=== PATIENT | male | born 1955 | race Caucasian/White ===

== ENCOUNTER 2017-05-11 22:12 | Inpatient (IN) | payer SELFPAY ==
[2017-05-11 22:45] LABS: #Eosinphils 0.1 thou/uL (0.0-0.7); #Lymphocytes 1.8 thou/uL (1.20-3.40); #Monocytes 0.6 thou/uL (0.11-0.59); %Basophils 0.3 % (0.0-1.0); %Eosinophils 2.9 % (0.0-10.0); %Lymphocytes 39.4 % (21.0-51.0); %Monocytes 13.6 % (0.0-10.0); Hematocrit 30.8 % (42.0-52.0); Mean Platelet Volume 6.6 fL (7.4-10.4); Red Blood Cell (RBC) Count 3.44 mill/uL (4.70-6.10); White Blood Cell (WBC) Count 4.5 thou/uL (4.8-10.8)
[2017-05-11 22:51] LABS: Prothrombin Time 12.8 SEC (12.0-14.7)
--- NOTE | 2017-05-11 22:57 | RAD ---
CHEST ONE VIEW 05/11/17 HISTORY: Chest pain. COMPARISON: 11/29/16. FINDINGS: The cardiac silhouette is magnified by projection. Pulmonary vasculature is unremarkable. Mediastinum is midline. There is no confluent air space consolidation, or evidence of pneumothorax. Cardiac jose tor leads overlie the chest. IMPRESSION: No active cardiopulmonary abnormalities are demonstrated. POS: [facility]
[2017-05-11 23:05] LABS: ALT (SGPT) 8 U/L (8-55); AST (SGOT) 21 U/L (5-34); Alkaline Phosphatase 101 U/L (40-150); Anion Gap 9 mmol/L (10-20); BUN (Urea Nitrogen) 10 mg/dL (8.4-25.7); Bilirubin, Total 0.2 mg/dL (0.2-1.2); Calc. Creatinine Clearance 0 mL/min (70-130); Calcium 8.5 mg/dL (7.8-10.44); Carbon Dioxide 22 mmol/L (23-31); Chloride 93 mmol/L (98-107); Estimated GFR-MDRD Greater than 90; Globulin 2.6 g/dL (2.4-3.5); Protein, Total 6.3 g/dL (5.8-8.1)
[2017-05-11 23:15] LABS: Troponin I Less than 0.010 ng/mL (< 0.028)
[2017-05-11] MEDS ORDERED: methylPREDNISolone Sod Succ/PF 125 MG/2 ML VIAL ONE (23:49)
[2017-05-11] MEDS ORDERED: Water For Inject, Bacteriostat 30 ML ONE (23:50)
[2017-05-12] MEDS ORDERED: Ondansetron HCl/PF 4 MG/2 ML Vial IVP PRN (01:34)
[2017-05-12] MEDS ORDERED: Ondansetron ODT 4 MG TAB SL PRN (01:34)
[2017-05-12] MEDS ORDERED: Sodium Chloride 0.9% 1,000 ML IV SCH (01:34)
[2017-05-12] MEDS ORDERED: Acetaminophen 325 MG TAB PO PRN ×2 (01:34→02:26)
[2017-05-12 01:45] VITALS: BMI 28.5
[2017-05-12] MEDS ORDERED: Bisacodyl 5 MG TAB PO PRN (02:26)
[2017-05-12] MEDS ORDERED: cefTRIAXone\\ROCEPHIN 1 GM in Sodium Chloride 0.9% 100 ML IVPB SCH (02:30)
[2017-05-12 02:37] LABS: Troponin I Less than 0.010 ng/mL (< 0.028)
[2017-05-12] MEDS ORDERED: hydrALAZINE 20 MG/ML VIAL SLOW IVP PRN (02:37)
[2017-05-12] MEDS: Sodium Chloride 0.9% 1,000 ML IV SCH ×2 (03:44→16:19)
[2017-05-12] MEDS: Azithromycin 500 MG in Sodium Chloride 0.9% 250 ML 250 ML IVPB SCH (03:44)
[2017-05-12] MEDS: Acetaminophen 325 MG TAB PO PRN ×2 (03:45→09:14)
[2017-05-12] MEDS: cefTRIAXone\\ROCEPHIN 1 GM, Syringe 0.4 ML in Sterile Water 9.6 ML SLOW IVP SCH (03:45)
--- NOTE | 2017-05-12 04:52 | HP ---
PRIMARY CARE PROVIDER: [facility], [facility]. CHIEF COMPLAINT: Shortness of breath. HISTORY OF PRESENT ILLNESS: Mr. Reyes is a pleasant, 62-year-old gentleman, who was seen at [facility] on 05/12/2017. He has a history of chronic obstructive pulmonary disease and asthma. He ran out of his medications about a week ago and stopped taking them. He reports shortness of breath over the last few days. He also reports cough with occasional green sputum. He also had diarrhea, which has resolved. He makenzie es any chest pain. He reportedly told the emergency room physician that he had intermittent chest pr essure. He now denies ever having any chest pain. He denies any nausea or vomiting. He is unsure if he had any fevers. He does report having chills. REVIEW OF SYSTEMS: The following complete review of systems was negative, unless otherwise mentioned in the HPI or below: Constitutional: Weight loss or gain, sense of well-being, ability to conduct usual activities, exerc ise tolerance. Skin/Breast: Rash, itching, changes in hair growth or loss, nail changes, breast lumps, tenderness, swelling, nipple discharge. Eyes: Vision, double vision, tearing, blind spots, pain. ENT/Mouth: Headaches (location, time of onset, duration, precipitating factors), vertigo, lightheade dness, injury. Vision, double vision, tearing, blind spots, pain, nose bleeding, colds, obstruction, discharge, dental difficulties, gingival bleeding, dentures, neck stiffness, pain, tenderness, alayna s in thyroid or other areas. Cardiovascular: Precordial pain, substernal distress, palpitations, syncope, dyspnea on exertion, or thopnea, nocturnal paroxysmal dyspnea, edema, cyanosis, hypertension, heart murmurs, varicosities, ph lebitis, claudication. Respiratory: Pain, shortness of breath, wheezing, stridor, cough, hemoptysis, fever or night sweats. Gastrointestinal: Poor appetite, dysphagia, indigestion, abdominal pain, heartburn, eructation, naus ea, vomiting, hematemesis, jaundice, constipation, or diarrhea, abnormal stools (david-colored, tarry, bloody, greasy, foul smelling), flatulence, hemorrhoids, recent changes in bowel habits. Genitourinary: Urgency, frequency, dysuria, nocturia, hematuria, polyuria, oliguria, unusual (or carmine nge in) color of urine, stones, hesitancy, change in size of stream, dribbling, acute retention or in continence, libido, potency. Musculoskeletal: Pain, swelling, redness or heat of muscles or joints, limitation of motion, muscula r weakness, atrophy, cramps. Neurologic/Psychiatric: Convulsions, paralyses, tremor, incoordination, paresthesias, difficulties w ith memory of speech, sensory or motor disturbances, or muscular coordination (ataxia, tremor), emoti onal problems, anxiety, depression, previous psychiatric care, unusual perceptions, hallucinations. Allergy/Immunologic: Skin rash, anemia, bleeding tendency, polydipsia, polyuria, intolerance to heat or cold. PAST MEDICAL HISTORY: Significant for COPD, asthma, and Alzheimer disease. PAST SURGICAL HISTORY: None. PSYCHIATRIC HISTORY: Bipolar disorder. SOCIAL HISTORY: Patient is an ex-smoker. He denies alcohol use or recreational drug use. FAMILY HISTORY: No family history of premature coronary artery disease. ALLERGIES: He has no known drug allergies. CURRENT HOME MEDICATIONS: The patient has not been taking any medications over the last week. PHYSICAL EXAMINATION: GENERAL: On examination, Mr. Reyes is sleepy, but arousable, not in acute distress. VITAL SIGNS: Blood pressure is 162/79, pulse is 76, he is breathing at a rate of 18, and saturating 100% on room air. He is afebrile. EYES: No scleral icterus. No conjunctival pallor. ENT: Moist mucosal membranes, no oropharyngeal erythema or exudates. NECK: Supple, nontender, normal range of movement, trachea midline. RESPIRATORY: Occasional expiratory wheeze. Accessory muscles of breathing are not active. Chest wa ll movements are symmetric bilaterally. CARDIOVASCULAR: S1 and S2 are heard, regular. Peripheral pulses are palpable. No carotid bruit. N o pericardial rub. NEUROLOGICAL: Cranial nerves II through XII intact, deep tendon reflexes 2+. SKIN: No rashes or subcutaneous nodules. PSYCHIATRIC: Normal mood, normal affect. Patient is oriented to person and place, not to time. LYMPHATIC: No cervical lymphadenopathy. MUSCULOSKELETAL: Power is 5/5 in all 4 extremities, normal range of movement at all major extremity joints. LABORATORY DATA: Mr. Reyes' labs and investigations were reviewed. I reviewed his electrocardiogram , which shows normal sinus rhythm, Q-waves in the anterior leads. I also reviewed his chest x-ray, w hich does not show any pulmonary infiltrates. Laboratory investigations show leukopenia with 4500 wh ite cells, normocytic anemia with hemoglobin 10.8, normal platelet count, INR 1.0, hyponatremia with sodium of 120, normal potassium, normal creatinine, and normal liver profile. Troponin I is normal. BNP is normal at 48.4. ASSESSMENT AND PLAN: Mr. Reyes is a pleasant, 62-year-old gentleman, who was seen at [facility] on 05/12/2017. His problem list includes: 1. Hyponatremia: Etiology unclear. Mr. Reyes endorses drinking a lot of free water. We will admit him to the hospital, start him on normal saline, and restrict free fluid intake. We will initiate w orkup for hyponatremia. We will recheck sodium level. 2. Chronic obstructive pulmonary disease exacerbation: Mr. Reyes also has chronic obstructive pulmo nary disease exacerbation. We will treat him with oxygen, steroids, bronchodilators, and antibiotics . 3. Leukopenia: Etiology unclear. He had leukopenia in July 2016, which subsequently improved. We will recheck his white count. 4. Alzheimer disease: Appears stable. Many thanks for allowing me to participate in your patient's care. Please feel free to contact me wi th any questions or concerns. LEVEL OF RISK: High. LEVEL OF COMPLEXITY: High.
[2017-05-12 05:45] LABS: #Lymphocytes 0.6 thou/uL (1.20-3.40); #Monocytes 0.1 thou/uL (0.11-0.59); %Eosinophils 0.6 % (0.0-10.0); %Monocytes 3.1 % (0.0-10.0); Hematocrit 30.4 % (42.0-52.0); Red Blood Cell (RBC) Count 3.39 mill/uL (4.70-6.10); White Blood Cell (WBC) Count 3.7 thou/uL (4.8-10.8)
[2017-05-12 06:05] LABS: Anion Gap 11 mmol/L (10-20); BUN (Urea Nitrogen) 9 mg/dL (8.4-25.7); Calc. Creatinine Clearance 120 mL/min (70-130); Calcium 8.6 mg/dL (7.8-10.44); Carbon Dioxide 18 mmol/L (23-31); Chloride 98 mmol/L (98-107); Cholesterol 231 mg/dl (< 200 Desired); Estimated GFR-MDRD Greater than 90; LDL Cholesterol, Calculated 150 mg/dL; Troponin I Less than 0.010 ng/mL (< 0.028)
--- NOTE | 2017-05-12 08:18 | ULT ---
RIGHT LOWER EXTREMITY VENOUS DOPPLER WITH SPECTRAL ANALYSIS AND COLOR FLOW EVALUATION: DATE: 05/12/17. HISTORY: Right thigh pain. FINDINGS: Mohan scale, color flow, Doppler evaluation, and spectral analysis of the right lower extremity venous structures is performed with 2D imaging. The right lower extremity common femoral, superficial femo ral, popliteal, most proximal greater saphenous and profunda femoral veins are imaged. There is normal lumen compressibility, flow, and augmentation in the visualized deep venous structure s of the right lower extremity. IMPRESSION: No evidence of a deep vein thrombosis involving the visualized deep venous structures right lower ext remity. POS: ED
[2017-05-12 08:54] LABS: Iron 105 ug/dL (65-175)
[2017-05-12] MEDS: Enoxaparin Sodium 40 MG/0.4 ML SYRINGE SC SCH (09:06)
--- NOTE | 2017-05-12 09:52 | PDOC.PN ---
- Subjective Encounter Start Date: 05/12/17 Encounter Start Time: 09:51 Subjective: feels much better. no more SOB/wheezing - Objective Vital Signs & Weight: Vital Signs (12 hours) Temp Pulse Resp BP Pulse Ox 05/12/17 08:50 98.9 F 89 19 123/64 98 05/12/17 06:09 75 16 98 05/12/17 04:00 98 F 76 18 119/67 05/12/17 01:20 97.6 F 76 18 162/79 H 99 I&O: 05/11/17 05/12/17 05/13/17 06:59 06:59 06:59 Intake Total 540 Output Total 1800 Balance -1260 Result Diagrams: 05/12/17 04:55 05/12/17 04:55 Additional Labs: Laboratory Tests 08/08/16 08/08/16 08/09/16 07:36 14:25 05:16 Sodium 123 L 125 L 132 L Iron TIBC % Saturation Troponin I Triglycerides Cholesterol Vitamin B12 Folate TSH 3rd Generation Urine Osmolality 08/10/16 05/11/17 05/11/17 08:01 22:36 22:36 Sodium 136 120 L Iron TIBC % Saturation Troponin I Less than 0.010 Triglycerides Cholesterol Vitamin B12 Folate TSH 3rd Generation Urine Osmolality 05/12/17 05/12/17 05/12/17 01:55 03:30 04:55 Sodium Iron TIBC % Saturation Troponin I Less than 0.010 Less than 0.010 Triglycerides Cholesterol Vitamin B12 Folate TSH 3rd Generation Urine Osmolality 166 L 05/12/17 05/12/17 05/12/17 04:55 04:55 07:48 Sodium 123 L Iron TIBC % Saturation Troponin I Triglycerides 262 H Cholesterol 231 H Vitamin B12 679 Folate 11.20 TSH 3rd Generation 1.6880 Urine Osmolality 05/12/17 07:48 Sodium Iron 105 TIBC 309 % Saturation 34 Troponin I Triglycerides Cholesterol Vitamin B12 Folate TSH 3rd Generation Urine Osmolality Radiology Reviewed by me: Yes (Doppler R leg-no DVT) Phys Exam - Physical Examination Constitutional: NAD HEENT: PERRLA, moist MMs, sclera anicteric, oral pharynx no lesions Neck: no nodes, no JVD, supple, full ROM Respiratory: no wheezing, no rales, no rhonchi, clear to auscultation bilateral Cardiovascular: RRR, no significant murmur, no rub, gallop Gastrointestinal: soft, non-tender, no distention, positive bowel sounds Musculoskeletal: no edema, pulses present Neurological: non-focal, normal sensation, moves all 4 limbs Psychiatric: normal affect, A&O x 3 Skin: no rash Dx/Plan (1) COPD with acute exacerbation Code(s): J44.1 - CHRONIC OBSTRUCTIVE PULMONARY DISEASE W (ACUTE) EXACERBATION Status: Acute (2) Hyponatremia Code(s): E87.1 - HYPO-OSMOLALITY AND HYPONATREMIA Status: Acute Comment: improving.Enmanuel SIADH from COPD (3) Normocytic anemia Code(s): D64.9 - ANEMIA, UNSPECIFIED Status: Acute (4) Tobacco abuse Code(s): Z72.0 - TOBACCO USE Status: Chronic - Plan DVT proph w/SCDs Cont NS w Free water restriction.sodium improving.recheck later today -: cont IV steroids.Nebs. Add Dulera . -: CM assistance for prescription coverage. -: Hemodynamically stable.AM labs -: OK to transfer to Medical. * . Review of Systems - Review of Systems Constitutional: Weakness. negative: Fever, Chills, Sweats, Malaise, Other Respiratory: negative: Cough, Dry, Shortness of Breath, Hemoptysis, SOB with Excertion, Pleuritic Pain, Sputum, Wheezing Cardiovascular: negative: Chest Pain, Palpitations, Orthopnea, Paroxysmal Noc. Dyspnea, Edema, Light Headedness, Other Gastrointestinal: negative: Nausea, Vomiting, Abdominal Pain, Diarrhea, Constipation, Melena, Hematochezia, Other Genitourinary: negative: Dysuria, Frequency, Incontinence, Hematuria, Retention , Other Musculoskeletal: negative: Neck Pain, Shoulder Pain, Arm Pain, Back Pain, Hand Pain, Leg Pain, Foot Pain, Other Neurological: negative: Weakness, Numbness, Incoordination, Change in Speech, Confusion, Seizures, Other - Medications/Allergies Allergies/Adverse Reactions: Allergies Allergy/AdvReac Type Severity Reaction Status Date / Time No Known Allergies Allergy Verified 08/08/16 17:35 Medications: Current Medications Acetaminophen (Tylenol) 650 mg PO Q6H PRN PRN Reason: Headache/Fever or Pain Last Admin: 05/12/17 09:14 Dose: 650 mg Albuterol/Ipratropium (Duoneb) 3 ml NEB Q4H PRN PRN Reason: SOB &/or Wheezing Albuterol/Ipratropium (Duoneb) 3 ml NEB [id number] [facility] Last Admin: 05/12/17 06:09 Dose: 3 ml Bisacodyl (Dulcolax) 10 mg PO DAILYPRN PRN PRN Reason: Constipation Enoxaparin Sodium (Lovenox) 40 mg SC 0900 [facility] Last Admin: 05/12/17 09:06 Dose: 40 mg Hydralazine HCl (Apresoline) 10 mg SLOW IVP Q6H PRN PRN Reason: SBP Greater Than 170 Azithromycin 500 mg/ Sodium (Chloride) 250 mls @ 250 mls/hr IVPB Q24HR [facility] Last Admin: 05/12/17 03:44 Dose: 250 mls Sodium Chloride (Normal Saline 0.9%) 1,000 mls @ 100 mls/hr IV .Q10H [facility] Last Admin: 05/12/17 03:44 Dose: 1,000 mls Ceftriaxone Sodium 1 gm/ (Syringe 0.4 ml/ Sterile Water) 10 mls @ 120 mls/hr SLOW IVP Q24HR [facility] Last Admin: 05/12/17 03:45 Dose: 10 mls Methylprednisolone Sodium Succinate (Solu-Medrol) 40 mg IVP Q6HR [facility] Last Admin: 05/12/17 06:30 Dose: 40 mg Mometasone Furoate/Formoterol Fumar (Dulera 200 Mcg/5 Mcg Inhaler) 1 puff INH BID-RT [facility] Sodium Chloride (Flush - Normal Saline) 10 ml IVF Q12HR [facility] Last Admin: 05/12/17 09:06 Dose: Not Given Sodium Chloride (Flush - Normal Saline) 10 ml IVF PRN PRN PRN Reason: Saline Flush
[2017-05-12] MEDS ORDERED: Sterile Water 10 ML ONE (17:01)
[2017-05-12] MEDS: Mometasone/Formoterol 120 PUFF INHALER INH SCH (18:46)
[2017-05-13] MEDS: Sodium Chloride 0.9% 1,000 ML IV SCH ×3 (02:13→21:39)
[2017-05-13] MEDS: Azithromycin 500 MG in Sodium Chloride 0.9% 250 ML 250 ML IVPB SCH (02:13)
[2017-05-13] MEDS: cefTRIAXone\\ROCEPHIN 1 GM, Syringe 0.4 ML in Sterile Water 9.6 ML SLOW IVP SCH (03:42)
[2017-05-13] MEDS: Mometasone/Formoterol 120 PUFF INHALER INH SCH ×2 (07:05→18:50)
[2017-05-13] MEDS: Enoxaparin Sodium 40 MG/0.4 ML SYRINGE SC SCH (07:49)
--- NOTE | 2017-05-13 11:29 | PDOC.PN ---
- Subjective Encounter Start Date: 05/13/17 Encounter Start Time: 11:27 Subjective: feels much better.no pain.no N/V/D. -: no SOB .no UMANZOR - Objective MAR Reviewed: Yes Vital Signs & Weight: Vital Signs (12 hours) Temp Pulse Resp BP Pulse Ox 05/13/17 10:00 98.9 F 97 18 05/13/17 08:00 98.9 F 97 18 108/67 96 05/13/17 07:05 84 16 05/13/17 06:56 84 16 95 05/13/17 04:00 98.4 F 103 H 18 125/72 94 L 05/13/17 00:00 98.3 F 102 H 18 121/72 96 Weight Weight 204 lb 14.4 oz I&O: 05/12/17 05/13/17 05/14/17 06:59 06:59 06:59 Intake Total 540 240 Output Total 1800 Balance -1260 240 Result Diagrams: 05/12/17 04:55 05/12/17 17:35 Phys Exam - Physical Examination Constitutional: NAD HEENT: PERRLA, moist MMs, sclera anicteric, oral pharynx no lesions Neck: no nodes, no JVD, supple, full ROM Respiratory: no wheezing, no rales, no rhonchi, clear to auscultation bilateral Cardiovascular: RRR, no significant murmur Gastrointestinal: soft, non-tender, no distention, positive bowel sounds Musculoskeletal: no edema, pulses present Neurological: non-focal, normal sensation, moves all 4 limbs Psychiatric: normal affect, A&O x 3 Skin: no rash Dx/Plan (1) COPD with acute exacerbation Code(s): J44.1 - CHRONIC OBSTRUCTIVE PULMONARY DISEASE W (ACUTE) EXACERBATION Status: Acute (2) Hyponatremia Code(s): E87.1 - HYPO-OSMOLALITY AND HYPONATREMIA Status: Acute Comment: improving.Shreeley SIADH from COPD (3) Normocytic anemia Code(s): D64.9 - ANEMIA, UNSPECIFIED Status: Acute (4) Tobacco abuse Code(s): Z72.0 - TOBACCO USE Status: Chronic - Plan out of bed/ambulate, DVT proph w/SCDs repeat BMP today.reduce IVF.cont fluid restriction. -: reduce IV steroids.CM to assist w meds on DC -: if sodium continues to improve, will DC home in next 12-24 hours. -: cont nebs,IS etc * . Review of Systems - Review of Systems Constitutional: negative: Fever, Chills, Sweats, Weakness, Malaise, Other ENT: negative: Ear Pain, Ear Discharge, Nose Pain, Nose Discharge, Nose Congestion, Mouth Pain, Mouth Swelling, Throat Pain, Throat Swelling, Other Respiratory: negative: Cough, Dry, Shortness of Breath, Hemoptysis, SOB with Excertion, Pleuritic Pain, Sputum, Wheezing Cardiovascular: negative: Chest Pain, Palpitations, Orthopnea, Paroxysmal Noc. Dyspnea, Edema, Light Headedness, Other Gastrointestinal: negative: Nausea, Vomiting, Abdominal Pain, Diarrhea, Constipation, Melena, Hematochezia, Other Genitourinary: negative: Dysuria, Frequency, Incontinence, Hematuria, Retention , Other Musculoskeletal: negative: Neck Pain, Shoulder Pain, Arm Pain, Back Pain, Hand Pain, Leg Pain, Foot Pain, Other Neurological: negative: Weakness, Numbness, Incoordination, Change in Speech, Confusion, Seizures, Other - Medications/Allergies Allergies/Adverse Reactions: Allergies Allergy/AdvReac Type Severity Reaction Status Date / Time No Known Allergies Allergy Verified 08/08/16 17:35 Medications: Current Medications Acetaminophen (Tylenol) 650 mg PO Q6H PRN PRN Reason: Headache/Fever or Pain Last Admin: 05/12/17 09:14 Dose: 650 mg Albuterol/Ipratropium (Duoneb) 3 ml NEB Q4H PRN PRN Reason: SOB &/or Wheezing Albuterol/Ipratropium (Duoneb) 3 ml NEB [id number] [facility] Last Admin: 05/13/17 06:56 Dose: 3 ml Bisacodyl (Dulcolax) 10 mg PO DAILYPRN PRN PRN Reason: Constipation Enoxaparin Sodium (Lovenox) 40 mg SC 0900 [facility] Last Admin: 05/13/17 07:49 Dose: 40 mg Hydralazine HCl (Apresoline) 10 mg SLOW IVP Q6H PRN PRN Reason: SBP Greater Than 170 Azithromycin 500 mg/ Sodium (Chloride) 250 mls @ 250 mls/hr IVPB Q24HR [facility] Last Admin: 05/13/17 02:13 Dose: 250 mls Ceftriaxone Sodium 1 gm/ (Syringe 0.4 ml/ Sterile Water) 10 mls @ 120 mls/hr SLOW IVP Q24HR [facility] Last Admin: 05/13/17 03:42 Dose: 10 mls Sodium Chloride (Normal Saline 0.9%) 1,000 mls @ 75 mls/hr IV .[id number] [facility] Last Admin: 05/13/17 09:26 Dose: Not Given Methylprednisolone Sodium Succinate (Solu-Medrol) 40 mg IVP 0600,1800 [facility] Mometasone Furoate/Formoterol Fumar (Dulera 200 Mcg/5 Mcg Inhaler) 1 puff INH BID-RT [facility] Last Admin: 05/13/17 07:05 Dose: 1 puff Sodium Chloride (Flush - Normal Saline) 10 ml IVF Q12HR [facility] Last Admin: 05/13/17 07:49 Dose: Not Given Sodium Chloride (Flush - Normal Saline) 10 ml IVF PRN PRN PRN Reason: Saline Flush
[2017-05-13] MEDS: Amoxicillin/Potassium Clav 875 MG TAB PO SCH (19:58)
[2017-05-14] MEDS ORDERED: Mag-Al 1200 mg/1200 mg/30 ML UDCUP PO PRN (03:11)
[2017-05-14 05:44] LABS: Anion Gap 12 mmol/L (10-20); BUN (Urea Nitrogen) 20 mg/dL (8.4-25.7); Calc. Creatinine Clearance 112 mL/min (70-130); Calcium 9.3 mg/dL (7.8-10.44); Carbon Dioxide 20 mmol/L (23-31); Chloride 105 mmol/L (98-107); Estimated GFR-MDRD 86
[2017-05-14] MEDS: Mometasone/Formoterol 120 PUFF INHALER INH SCH (06:29)
[2017-05-14] MEDS: Enoxaparin Sodium 40 MG/0.4 ML SYRINGE SC SCH (08:20)
[2017-05-14] MEDS: Amoxicillin/Potassium Clav 875 MG TAB PO SCH (08:20)
[2017-05-14 08:29] VITALS: BP 126/71; TEMP 97.9
--- NOTE | 2017-05-14 11:26 | PDOC.PN ---
- Subjective Encounter Start Date: 05/14/17 Encounter Start Time: 11:24 Subjective: feels very well. no chest pain. -: no SOB/UMANZOR - Objective MAR Reviewed: Yes Vital Signs & Weight: Vital Signs (12 hours) Temp Pulse Resp BP Pulse Ox 05/14/17 08:00 97.9 F 78 16 126/71 98 05/14/17 06:28 71 14 96 05/14/17 05:12 98.0 F 85 18 124/68 95 05/14/17 00:23 96 05/14/17 00:00 98.0 F 71 16 123/75 95 Weight Weight 204 lb 14.4 oz I&O: 05/13/17 05/14/17 05/15/17 06:59 06:59 06:59 Intake Total 2665 Output Total 2100 Balance 565 Result Diagrams: 05/12/17 04:55 05/14/17 04:30 Additional Labs: Laboratory Tests 05/11/17 05/12/17 05/12/17 22:36 04:55 07:48 Sodium 120 L 123 L Iron TIBC % Saturation Triglycerides 262 H Cholesterol 231 H Vitamin B12 679 Folate 11.20 05/12/17 05/12/17 05/12/17 07:48 11:39 17:35 Sodium 132 L 130 L Iron 105 TIBC 309 % Saturation 34 Triglycerides Cholesterol Vitamin B12 Folate Phys Exam - Physical Examination Constitutional: NAD HEENT: PERRLA, moist MMs, sclera anicteric, oral pharynx no lesions Neck: no nodes, no JVD, supple, full ROM Respiratory: no wheezing, no rales, no rhonchi, clear to auscultation bilateral Cardiovascular: RRR, no significant murmur, no rub, gallop Gastrointestinal: soft, non-tender, no distention, positive bowel sounds Musculoskeletal: no edema, pulses present Neurological: non-focal, normal sensation, moves all 4 limbs Psychiatric: normal affect, A&O x 3 Skin: no rash Dx/Plan (1) COPD with acute exacerbation Code(s): J44.1 - CHRONIC OBSTRUCTIVE PULMONARY DISEASE W (ACUTE) EXACERBATION Status: Acute (2) Hyponatremia Code(s): E87.1 - HYPO-OSMOLALITY AND HYPONATREMIA Status: Acute Comment: improving.Likley SIADH from COPD (3) Normocytic anemia Code(s): D64.9 - ANEMIA, UNSPECIFIED Status: Acute (4) Tobacco abuse Code(s): Z72.0 - TOBACCO USE Status: Chronic - Plan hemodynamically stable. OK to DC home. -: CM assisting w script help. -: see DC summary for details * . Review of Systems - Review of Systems Constitutional: negative: Fever, Chills, Sweats, Weakness, Malaise, Other Respiratory: negative: Cough, Dry, Shortness of Breath, Hemoptysis, SOB with Excertion, Pleuritic Pain, Sputum, Wheezing Cardiovascular: negative: Chest Pain, Palpitations, Orthopnea, Paroxysmal Noc. Dyspnea, Edema, Light Headedness, Other Gastrointestinal: negative: Nausea, Vomiting, Abdominal Pain, Diarrhea, Constipation, Melena, Hematochezia, Other Genitourinary: negative: Dysuria, Frequency, Incontinence, Hematuria, Retention , Other Musculoskeletal: negative: Neck Pain, Shoulder Pain, Arm Pain, Back Pain, Hand Pain, Leg Pain, Foot Pain, Other Neurological: negative: Weakness, Numbness, Incoordination, Change in Speech, Confusion, Seizures, Other - Medications/Allergies Allergies/Adverse Reactions: Allergies Allergy/AdvReac Type Severity Reaction Status Date / Time No Known Allergies Allergy Verified 08/08/16 17:35 Medications: Current Medications Acetaminophen (Tylenol) 650 mg PO Q6H PRN PRN Reason: Headache/Fever or Pain Last Admin: 05/12/17 09:14 Dose: 650 mg Al Hydroxide/Mg Hydroxide (Maalox) 30 ml PO Q4H PRN PRN Reason: Heartburn or Indigestion Last Admin: 05/14/17 05:24 Dose: 30 ml Albuterol/Ipratropium (Duoneb) 3 ml NEB Q4H PRN PRN Reason: SOB &/or Wheezing Albuterol/Ipratropium (Duoneb) 3 ml NEB [id number] [facility] Last Admin: 05/14/17 06:28 Dose: 3 ml Amoxicillin/Clavulanate Potassium (Augmentin) 875 mg PO Q12HR [facility] Last Admin: 05/14/17 08:20 Dose: 875 mg Bisacodyl (Dulcolax) 10 mg PO DAILYPRN PRN PRN Reason: Constipation Enoxaparin Sodium (Lovenox) 40 mg SC 0900 [facility] Last Admin: 05/14/17 08:20 Dose: 40 mg Hydralazine HCl (Apresoline) 10 mg SLOW IVP Q6H PRN PRN Reason: SBP Greater Than 170 Methylprednisolone Sodium Succinate (Solu-Medrol) 40 mg IVP 0600,1800 [facility] Last Admin: 05/14/17 05:25 Dose: 40 mg Mometasone Furoate/Formoterol Fumar (Dulera 200 Mcg/5 Mcg Inhaler) 1 puff INH BID-RT [facility] Last Admin: 05/14/17 06:29 Dose: 1 puff Sodium Chloride (Flush - Normal Saline) 10 ml IVF Q12HR [facility] Last Admin: 05/14/17 08:21 Dose: Not Given Sodium Chloride (Flush - Normal Saline) 10 ml IVF PRN PRN PRN Reason: Saline Flush
--- NOTE | 2017-05-14 15:17 | DIS ---
DATE OF ADMISSION: 05/12/2017 DATE OF DISCHARGE: 05/14/2017 PRIMARY CARE PHYSICIAN: Jeannette Reyes in [place]. DISCHARGE DIAGNOSES: 1. Chronic obstructive pulmonary disease with acute exacerbation. 2. Hyponatremia 3. Normocytic anemia. 4. History of tobacco abuse. DISCHARGE MEDICATIONS: 1. Medrol Dosepak. 2. Budesonide nebulizer b.i.d. 3. Amoxicillin 875 mg p.o. b.i.d. for 5 days. 4. Albuterol 2 puffs q.6 hours inhaler as needed. PROCEDURES DONE: In the hospital include: 1. Chest x-ray upon presentation, which is negative for any infiltrate. 2. Vascular ultrasound of the right thigh and right leg, which is negative for any DVT. DISCHARGE DISPOSITION: Back to [employer] called the bridge. HISTORY OF [facility] ILLNESS: Mr. Say Reyes is a very pleasant 62-year-old man with past medical hist ory of COPD, asthma, and Alzheimer's who presented to the ER with complaints of shortness of breath. He had run out of his medication and has stopped taking them and his breathing was repeatedly gettin g worse. Upon presentation, he was hemodynamically stable. Chest x-ray was unremarkable. EKG was w ithin normal limits. He had leukopenia and anemia blood work. He was also found to have low sodium at 120, otherwise normal serum chemistries. He was admitted with a presumptive diagnosis of COPD exa cerbation and hyponatremia. Please see admission history and physical for further details. HOSPITAL COURSE: The patient was started on IV fluids for his low sodium with free water restriction . His sodium was monitored very closely and then gradually improved to the point that it was almost entirely within normal limits. 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 With regards to his COPD exacerbation, he was treated with IV steroids and nebulizers as well as Dule ra b.i.d. His symptoms improved quickly and he was off of the oxygen and walking in the hallways wit hout any hypoxia. He was empirically treated with IV antibiotics, which were later changed to oral antibiotic for COPD exacerbation. Eventually, the patient improved to the point where he was not using any oxygen and hi s sodium is improved to 133. At this time, he is ready for discharge. Medication prescription help was arranged by our case management through the [facility]. All the prescriptions were written for this patient. I have personally called his [employer] to make sure that he does not l oose his place over there. He works there and I have given him a work excuse as he is still kind of weak. He was seen and examined prior to discharge. Please see hospitalist progress note from today's date for further detail including the [id number] interaction.
== END 2017-05-14 15:00 | disposition home or self-care (01) | DRG 191 ==
LOC: ERS 22:12 → 2NO 05-12 00:13 → T4-B 05-12 15:57
PROVIDERS: ADMIT Internal Medicine; ATTEND Internal Medicine
DX: J44.1 Chronic obstructive pulmonary disease with (acute) exacerbation (principal); E22.2 Syndrome of inappropriate secretion of antidiuretic hormone; G30.9 Alzheimer's disease, unspecified; F02.80 Dementia in other diseases classified elsewhere, unspecified severity, without behavioral disturbance, psychotic disturbance, mood disturbance, and anxiety; D64.9 Anemia, unspecified; F31.9 Bipolar disorder, unspecified; F17.210 Nicotine dependence, cigarettes, uncomplicated
CPT/HCPCS: 36415; 71010; 80048; 80053; 80061; 82553; 82607; 82746; 83540; 83550; 83880; 83930; 83935; 84443; 84484; 85025; 85610; 93005; 94640; 94664; 96361; 96374; 99406; A4216; J0456; J0696; J1650; J2920; J2930; J7050; J7620

== ENCOUNTER 2017-07-05 07:17 | Emergency (ER) | payer SELFPAY ==
[2017-07-05 07:48] LABS: Hemoglobin 11.2 g/dL (14.0-18.0); Mean Corpuscular HGB CONC 35.1 g/dL (32.0-36.0); Mean Corpuscular Hemoglobin 31.1 pg (27.0-31.0); Mean Corpuscular Volume 88.6 fl (80.0-94.0); Mean Platelet Volume 6.6 fL (7.4-10.4); Platelet Count 283 thou/uL (130-400); RBC Distribution Width 11.8 % (11.5-14.5); White Blood Cell (WBC) Count 4.6 thou/uL (4.8-10.8)
[2017-07-05] MEDS ORDERED: methylPREDNISolone Sod Succ/PF 125 MG/2 ML VIAL ONE (07:58)
[2017-07-05] MEDS ORDERED: Water For Injection,Sterile 20 ML ONE (07:58)
[2017-07-05 08:05] LABS: Eosinophils 1 % (0-10); Lymphocytes 52 % (21-51); MDiff Complete? YES; Monocytes 5 % (0-10); Neutrophil 39 % (42-75); Reactive Lymphocytes 2 % (0-10)
--- NOTE | 2017-07-05 08:07 | RAD ---
CHEST 1 VIEW: Date: 07/05/17 HISTORY: Dyspnea. COMPARISON: 05/11/17. FINDINGS: Cardiac silhouette and pulmonary vasculature are unremarkable. Mediastinum is midline. Lungs remain h yperinflated. There is no confluent air space consolidation or evidence of pneumothorax. Cardiac jose tor leads overlie the chest. IMPRESSION: No active cardiopulmonary abnormalities are demonstrated. POS: [facility]
[2017-07-05 08:09] LABS: ALT (SGPT) 12 U/L (8-55); AST (SGOT) 28 U/L (5-34); Albumin 3.6 g/dL (3.4-4.8); Alkaline Phosphatase 95 U/L (40-150); Anion Gap 14 mmol/L (10-20); BUN (Urea Nitrogen) 10 mg/dL (8.4-25.7); Bilirubin, Total 0.4 mg/dL (0.2-1.2); CK (CPK) 193 U/L (30-200); Calc. Creatinine Clearance 0 mL/min (70-130); Calcium 8.6 mg/dL (7.8-10.44); Carbon Dioxide 15 mmol/L (23-31); Chloride 96 mmol/L (98-107); Estimated GFR-MDRD 75; Globulin 2.6 g/dL (2.4-3.5); Glucose 138 mg/dL (80-115); Lipase 25 U/L (8-78); Protein, Total 6.2 g/dL (5.8-8.1); Sodium 121 mmol/L (136-145)
[2017-07-05 08:13] LABS: CKMB 3.8 ng/mL (0-6.6); Troponin I Less than 0.010 ng/mL (< 0.028)
--- NOTE | 2017-07-14 21:36 | EKG ---
Test Reason : Blood Pressure : / mmHG Vent. Rate : 090 BPM Atrial Rate : 090 BPM P-R Int : 144 ms QRS Dur : 080 ms QT Int : 384 ms P-R-T Axes : 068 012 018 degrees QTc Int : 469 ms Normal sinus rhythm Nonspecific ST and T wave abnormality Abnormal ECG Confirmed by BRIAN GALVEZ, ERVIN ([id number]), features editor BHARAT NICOLAS ([id number]) on 07/14/2017 9:36:01 PM Referred By: Confirmed By:ERVIN TORRES MD
== END 2017-07-05 10:20 | disposition home or self-care (01) ==
LOC: ERS 07:17
DX: J44.1 Chronic obstructive pulmonary disease with (acute) exacerbation (principal); G30.9 Alzheimer's disease, unspecified; F02.80 Dementia in other diseases classified elsewhere, unspecified severity, without behavioral disturbance, psychotic disturbance, mood disturbance, and anxiety; F17.210 Nicotine dependence, cigarettes, uncomplicated; F32.9 Major depressive disorder, single episode, unspecified
CPT/HCPCS: 71045; 80053; 82550; 82553; 83690; 83880; 84484; 85025; 93005; 94640; 94760; 96374; J2930; J7620

== ENCOUNTER 2017-08-22 02:51 | Emergency (ER) | payer SELFPAY ==
[2017-08-22] MEDS ORDERED: predniSONE 20 MG TAB ONE (03:01)
[2017-08-22] MEDS ORDERED: Albuterol Sulfate 2.5 mg/3 ml Neb ONE ×2 (03:02)
--- NOTE | 2017-08-22 08:01 | RAD ---
PORTABLE CHEST: HISTORY: Cough. COMPARISON: 07/05/17. FINDINGS: Lungs are clear with no focal infiltrate. Heart and mediastinum unremarkable. Scattered granuloma a gain noted. IMPRESSION: No acute finding or interval change. POS: [facility]
== END 2017-08-22 04:20 | disposition home or self-care (01) ==
LOC: ERS 02:51
DX: J44.1 Chronic obstructive pulmonary disease with (acute) exacerbation (principal); G30.0 Alzheimer's disease with early onset; F02.80 Dementia in other diseases classified elsewhere, unspecified severity, without behavioral disturbance, psychotic disturbance, mood disturbance, and anxiety; F31.9 Bipolar disorder, unspecified; F17.210 Nicotine dependence, cigarettes, uncomplicated
CPT/HCPCS: 71045; 93005; J7506; J7611; J7620

== ENCOUNTER 2025-01-04 14:41 | Emergency (ER) | payer MEDICARE, OTHER ==
[~2025-01-04 14:41] MED LIST: Iopamidol-370 76% 500 ML MDV (1 ML CHARGE) ONE
[2025-01-04 15:22] LABS: #Basophils 0.06 10x3/uL (0.0-0.2); #Eosinophils 0.16 10x3/uL (0.0-0.7); #Monocytes 0.40 10x3/uL (0.11-0.59); #Neutrophils 2.13 10x3/uL (1.40-6.50); %Basophils 1.3 % (0.0-1.0); %Eosinophils 3.6 % (0.0-10.0); %Lymphocytes 38.2 % (21.0-51.0); %Monocytes 8.9 % (0.0-10.0); %Neutrophils 47.6 % (42.0-75.0); Hematocrit 27.9 % (42.0-52.0); Hemoglobin 9.6 g/dL (14.0-18.0); Mean Corpuscular Hemoglobin 28.9 pg (27.0-31.0); Mean Corpuscular Volume 84.0 fL (78.0-98.0); Platelet Count 255 10x3/uL (130-400); Red Blood Cell (RBC) Count 3.32 mill/uL (4.70-6.10); White Blood Cell (WBC) Count 4.48 10x3/uL (4.8-10.8)
[2025-01-04 15:37] LABS: ALT (SGPT) 7 U/L (Less than 45); AST (SGOT) 24 U/L (11-34); Albumin 3.6 g/dL (3.1-4.5); Alkaline Phosphatase 80 U/L (40-110); Anion Gap 12 mmol/L (10-20); BUN (Urea Nitrogen) 21 mg/dL (8.4-25.7); Bilirubin, Total 0.3 mg/dL (0.3-1.2); Calc. Creatinine Clearance 0 mL/min (70-130); Calcium 9.4 mg/dL (7.8-10.44); Carbon Dioxide 21 mmol/L (23-31); Chloride 102 mmol/L (98-107); Globulin 2.7 g/dL (2.4-3.5); Glucose 80 mg/dL (80-115); Potassium 4.1 mmol/L (3.5-5.1); Sodium 131 mmol/L (136-145)
[2025-01-04 15:42] LABS: Troponin I Less than 0.010 ng/mL (< 0.028)
== END 2025-01-04 23:07 | disposition short-term general hospital (02) ==
LOC: ERS 14:41
DX: J44.1 Chronic obstructive pulmonary disease with (acute) exacerbation (principal); F17.210 Nicotine dependence, cigarettes, uncomplicated
CPT/HCPCS: 71045; 71275; 80053; 83880; 84484; 85025; 85379; 93005; 94760; J2919; Q9967; 96374; J7620

== ENCOUNTER 2025-03-15 16:54 | Inpatient (IN) | payer MEDICARE ==
[2025-03-15] MEDS ORDERED: Ipratropium Bromide 2.5 ml Neb ONE ×2 (18:54→21:46)
[2025-03-15 18:55] LABS: #Basophils 0.06 10x3/uL (0.0-0.2); #Eosinophils 0.06 10x3/uL (0.0-0.7); #Monocytes 0.55 10x3/uL (0.11-0.59); #Neutrophils 9.42 10x3/uL (1.40-6.50); %Basophils 0.5 % (0.0-1.0); %Eosinophils 0.5 % (0.0-10.0); %Lymphocytes 9.9 % (21.0-51.0); %Monocytes 4.9 % (0.0-10.0); %Neutrophils 83.8 % (42.0-75.0); Hematocrit 27.4 % (42.0-52.0); Hemoglobin 9.5 g/dL (14.0-18.0); Mean Corpuscular Hemoglobin 28.9 pg (27.0-31.0); Mean Corpuscular Volume 83.3 fL (78.0-98.0); Platelet Count 172 10x3/uL (130-400); Red Blood Cell (RBC) Count 3.29 mill/uL (4.70-6.10); White Blood Cell (WBC) Count 11.24 10x3/uL (4.8-10.8)
[2025-03-15] MEDS ORDERED: Albuterol 2.5 MG (0.5 mL) NEB ONE ×2 (18:56→21:45)
[2025-03-15] MEDS ORDERED: Magnesium 2 GM/50 ML BAG (IN WATER) ONE (18:57)
[2025-03-15 19:09] LABS: INR-International Normal Ratio 1.1; PTT 40.7 sec (22.9-36.1); Prothrombin Time 14.4 sec (12.0-14.7)
[2025-03-15 19:11] LABS: ALT (SGPT) 7 U/L (Less than 45); AST (SGOT) 24 U/L (11-34); Albumin 3.6 g/dL (3.1-4.5); Alkaline Phosphatase 84 U/L (40-110); Anion Gap 12 mmol/L (10-20); BUN (Urea Nitrogen) 15 mg/dL (8.4-25.7); Bilirubin, Total 0.4 mg/dL (0.3-1.2); Calc. Creatinine Clearance 0 mL/min (70-130); Calcium 8.6 mg/dL (7.8-10.44); Carbon Dioxide 18 mmol/L (23-31); Chloride 97 mmol/L (98-107); Globulin 2.8 g/dL (2.4-3.5); Glucose 85 mg/dL (80-115); Potassium 4.0 mmol/L (3.5-5.1); Sodium 123 mmol/L (136-145)
[2025-03-15 19:17] LABS: Sodium 124 mmol/L (133-146)
[2025-03-15 20:32] LABS: Actual Bicarbonate (HCO3v) 17.2 mEq/L (22-28); Base Excess -6.8 mEq/L (-2.0 to +3.0); Hematocrit-VBG 31 % (42.0-52.0); Hemoglobin (Hb) 10.6 g/dL (12.6-17.4)
[2025-03-15 20:33] LABS: Calcium, Ionized (venous) 1.07 mmol/L (1.16-1.32); Chloride (VBG) 96 mmol/L (98-106); Potassium (VBG) 3.46 mmol/L (3.70-5.30)
[2025-03-15] MEDS ORDERED: Cefepime 2 GM VIAL ONE (21:46)
[2025-03-15] MEDS ORDERED: Azithromycin 500 MG VIAL ONE (21:46)
[2025-03-15 22:31] LABS: Bacteria/HPF None Seen HPF (None Seen); CAUTI Indications for Culture Alt mental st,lethar; Glucose, Urine (Dipstick) Normal (Negative); Leukocyte Negative Leu/uL (Negative); Protein, Urine (Dipstick) Negative (Neg-Trace); RBC/HPF 0-3 HPF (0-3); Specific Gravity, Urine 1.013 (1.002-1.036); WBC/HPF 0-3 HPF (0-3)
[2025-03-15 22:33] LABS: Urine Culture Reflex No No
[2025-03-15] MEDS ORDERED: Senokot S 8.6-50 MG TAB PO PRN (22:37)
[2025-03-15] MEDS ORDERED: Ondansetron PF 4 MG/2 ML Vial IVP PRN (22:37)
[2025-03-15] MEDS ORDERED: Electrolyte Replacement Protocol 1 EACH FS SCH (22:45)
[2025-03-16 00:35] LABS: Sodium, Urine 76.0 mmol/L (Not Available)
[2025-03-16 06:54] LABS: #Basophils Less than 0.03 10x3/uL (0.0-0.2); #Eosinophils Less than 0.03 10x3/uL (0.0-0.7); #Monocytes 0.11 10x3/uL (0.11-0.59); #Neutrophils 10.26 10x3/uL (1.40-6.50); %Basophils 0.1 % (0.0-1.0); %Eosinophils 0.0 % (0.0-10.0); %Lymphocytes 5.5 % (21.0-51.0); %Monocytes 1.0 % (0.0-10.0); %Neutrophils 92.8 % (42.0-75.0); Hematocrit 29.3 % (42.0-52.0); Hemoglobin 9.5 g/dL (14.0-18.0); Mean Corpuscular Hemoglobin 27.7 pg (27.0-31.0); Mean Corpuscular Volume 85.4 fL (78.0-98.0); Platelet Count 188 10x3/uL (130-400); Red Blood Cell (RBC) Count 3.43 mill/uL (4.70-6.10); White Blood Cell (WBC) Count 11.06 10x3/uL (4.8-10.8)
[2025-03-16 07:12] LABS: Anion Gap 19 mmol/L (10-20); BUN (Urea Nitrogen) 16 mg/dL (8.4-25.7); Calc. Creatinine Clearance 62 mL/min (70-130); Calcium 8.9 mg/dL (7.8-10.44); Carbon Dioxide 14 mmol/L (23-31); Chloride 101 mmol/L (98-107); Glucose 244 mg/dL (80-115); Potassium 3.5 mmol/L (3.5-5.1); Sodium 130 mmol/L (136-145)
[2025-03-16] MEDS: Enoxaparin 40 MG (0.4 mL) SYRINGE SC SCH (08:06)
[2025-03-16] MEDS: Memantine 5 MG TAB PO SCH (08:08)
[2025-03-16] MEDS: Azithromycin 250 MG TAB PO SCH ×2 (08:08→19:56)
[2025-03-16 16:33] VITALS: BMI 22.1
[2025-03-16] MEDS ORDERED: Dextrose 50% Abboject 50 ML SYRINGE SLOW IVP PRN (17:30)
[2025-03-16] MEDS ORDERED: Glucagon 1 MG/ML KIT IM PRN (17:30)
[2025-03-16] MEDS: Acetaminophen 325 MG TAB PO PRN (18:25)
[2025-03-16] MEDS: Calcium Carbonate 500 MG ChewTAB PO PRN (19:56)
[2025-03-16] MEDS: cefTRIAXone\\ROCEPHIN 1 GM in Sodium Chloride 0.9% 100 ML IVPB SCH (19:56)
[2025-03-16] MEDS: Melatonin 3 MG TAB PO PRN (19:56)
[2025-03-17 05:07] VITALS: BMI 22.5
[2025-03-17 07:16] LABS: Anion Gap 13 mmol/L (10-20); BUN (Urea Nitrogen) 20 mg/dL (8.4-25.7); Calc. Creatinine Clearance 79 mL/min (70-130); Calcium 8.9 mg/dL (7.8-10.44); Carbon Dioxide 16 mmol/L (23-31); Chloride 105 mmol/L (98-107); Glucose 137 mg/dL (80-115); Potassium 4.0 mmol/L (3.5-5.1); Sodium 130 mmol/L (136-145)
[2025-03-17] MEDS ORDERED: Non-Formulary Item 1 EACH (Fluticasone/Umeclidin/Vilanter [Trelegy Ellipta 100-62.5-25] 1 INH SCH (09:00)
[2025-03-17] MEDS: risperiDONE 0.25 MG TAB PO SCH (09:12)
[2025-03-17] MEDS: Mometasone 100 MCG HFA INHALER (RT USE) INH SCH (18:22)
[2025-03-18 04:14] LABS: Anion Gap 12 mmol/L (10-20); BUN (Urea Nitrogen) 18 mg/dL (8.4-25.7); Calc. Creatinine Clearance 75 mL/min (70-130); Calcium 8.8 mg/dL (7.8-10.44); Carbon Dioxide 17 mmol/L (23-31); Chloride 106 mmol/L (98-107); Glucose 105 mg/dL (80-115); Potassium 4.1 mmol/L (3.5-5.1); Sodium 131 mmol/L (136-145)
[2025-03-18 15:50] VITALS: BP 127/74; TEMP 98.3
== END 2025-03-18 17:26 | disposition home or self-care (01) | DRG 189 ==
LOC: ERS 16:54 → T4-A 22:37
PROVIDERS: ADMIT Internal Medicine; ATTEND Internal Medicine
DX: J96.01 Acute respiratory failure with hypoxia (principal); J44.1 Chronic obstructive pulmonary disease with (acute) exacerbation; E22.2 Syndrome of inappropriate secretion of antidiuretic hormone; G30.0 Alzheimer's disease with early onset; J44.9 Chronic obstructive pulmonary disease, unspecified; F31.9 Bipolar disorder, unspecified; F17.210 Nicotine dependence, cigarettes, uncomplicated; R73.9 Hyperglycemia, unspecified; F02.80 Dementia in other diseases classified elsewhere, unspecified severity, without behavioral disturbance, psychotic disturbance, mood disturbance, and anxiety; D63.8 Anemia in other chronic diseases classified elsewhere; Z91.148 Patient's other noncompliance with medication regimen for other reason
CPT/HCPCS: 36415; 36416; 71045; 80048; 80053; 81001; 82570; 82805; 83880; 84300; 84484; 85025; 85610; 85730; 93005; 96365; 96375; J0456; J0692; J0696; J1650; J1815; J2919; J3475; J7512; J7611; J7644

== ENCOUNTER 2025-03-19 19:52 | Emergency (ER) | payer MEDICARE ==
[2025-03-19 20:26] LABS: #Basophils Less than 0.03 10x3/uL (0.0-0.2); #Eosinophils 0.03 10x3/uL (0.0-0.7); #Monocytes 0.53 10x3/uL (0.11-0.59); #Neutrophils 6.19 10x3/uL (1.40-6.50); %Basophils 0.1 % (0.0-1.0); %Eosinophils 0.3 % (0.0-10.0); %Lymphocytes 24.1 % (21.0-51.0); %Monocytes 5.9 % (0.0-10.0); %Neutrophils 68.5 % (42.0-75.0); Hematocrit 27.2 % (42.0-52.0); Hemoglobin 9.3 g/dL (14.0-18.0); Mean Corpuscular Hemoglobin 28.4 pg (27.0-31.0); Mean Corpuscular Volume 83.2 fL (78.0-98.0); Platelet Count 283 10x3/uL (130-400); Red Blood Cell (RBC) Count 3.27 mill/uL (4.70-6.10); White Blood Cell (WBC) Count 9.04 10x3/uL (4.8-10.8)
[2025-03-19 20:55] LABS: ALT (SGPT) 10 U/L (Less than 45); AST (SGOT) 20 U/L (11-34); Albumin 3.4 g/dL (3.1-4.5); Alkaline Phosphatase 71 U/L (40-110); Anion Gap 12 mmol/L (10-20); BUN (Urea Nitrogen) 24 mg/dL (8.4-25.7); Bilirubin, Total 0.2 mg/dL (0.3-1.2); Calc. Creatinine Clearance 0 mL/min (70-130); Calcium 8.8 mg/dL (7.8-10.44); Carbon Dioxide 21 mmol/L (23-31); Chloride 101 mmol/L (98-107); Globulin 2.7 g/dL (2.4-3.5); Glucose 81 mg/dL (80-115); Potassium 3.8 mmol/L (3.5-5.1); Sodium 130 mmol/L (136-145)
== END 2025-03-19 22:04 | disposition home or self-care (01) ==
LOC: ERS 19:52
DX: R07.89 Other chest pain (principal); J44.9 Chronic obstructive pulmonary disease, unspecified; F17.210 Nicotine dependence, cigarettes, uncomplicated; Z79.899 Other long term (current) drug therapy
CPT/HCPCS: 71045; 80053; 84484; 85025; 93005; 94760

== ENCOUNTER 2025-04-21 08:24 | Observation (INO) | payer MEDICARE ==
[2025-04-21 11:14] LABS: #Basophils Less than 0.03 10x3/uL (0.0-0.2); #Eosinophils Less than 0.03 10x3/uL (0.0-0.7); #Monocytes 0.68 10x3/uL (0.11-0.59); #Neutrophils 7.61 10x3/uL (1.40-6.50); %Basophils 0.1 % (0.0-1.0); %Eosinophils 0.2 % (0.0-10.0); %Lymphocytes 24.5 % (21.0-51.0); %Monocytes 6.1 % (0.0-10.0); %Neutrophils 67.9 % (42.0-75.0); Hematocrit 14.5 % (42.0-52.0); Hemoglobin 4.5 g/dL (14.0-18.0); Mean Corpuscular Hemoglobin 29.6 pg (27.0-31.0); Mean Corpuscular Volume 95.4 fL (78.0-98.0); Platelet Count 290 10x3/uL (130-400); Red Blood Cell (RBC) Count 1.52 mill/uL (4.70-6.10); White Blood Cell (WBC) Count 11.21 10x3/uL (4.8-10.8)
[2025-04-21 11:24] LABS: ALT (SGPT) 8 U/L (Less than 45); AST (SGOT) 15 U/L (11-34); Albumin 2.7 g/dL (3.1-4.5); Alkaline Phosphatase 63 U/L (40-110); Anion Gap 13 mmol/L (10-20); BUN (Urea Nitrogen) 30 mg/dL (8.4-25.7); Bilirubin, Total 0.1 mg/dL (0.3-1.2); Calc. Creatinine Clearance 0 mL/min (70-130); Calcium 8.1 mg/dL (7.8-10.44); Carbon Dioxide 21 mmol/L (23-31); Chloride 101 mmol/L (98-107); Globulin 2.3 g/dL (2.4-3.5); Glucose 88 mg/dL (83-110); Potassium 3.4 mmol/L (3.5-5.1); Sodium 132 mmol/L (136-145)
[2025-04-21] MEDS ORDERED: cefTRIAXone (ROCEPHIN) 1 GM VIAL ONE (14:17)
[2025-04-21 15:37] LABS: Bacteria/HPF None Seen HPF (None Seen); CAUTI Indications for Culture Dysuria,urgency,freq; Glucose, Urine (Dipstick) Normal (Negative); Leukocyte Negative Leu/uL (Negative); Protein, Urine (Dipstick) Negative (Neg-Trace); RBC/HPF 0-3 HPF (0-3); Specific Gravity, Urine 1.018 (1.002-1.036); WBC/HPF 0-3 HPF (0-3)
[2025-04-21 15:38] LABS: Urine Culture Reflex No No
[2025-04-21] MEDS ORDERED: Ondansetron PF 4 MG/2 ML Vial IVP PRN (15:54)
[2025-04-21] MEDS ORDERED: Acetaminophen 325 MG TAB PO PRN (15:54)
[2025-04-21] MEDS ORDERED: Melatonin 3 MG TAB PO PRN (15:54)
[2025-04-21 18:28] LABS: #Basophils Less than 0.03 10x3/uL (0.0-0.2); #Eosinophils Less than 0.03 10x3/uL (0.0-0.7); #Monocytes 0.42 10x3/uL (0.11-0.59); #Neutrophils 5.21 10x3/uL (1.40-6.50); %Basophils 0.3 % (0.0-1.0); %Eosinophils 0.3 % (0.0-10.0); %Lymphocytes 27.1 % (21.0-51.0); %Monocytes 5.3 % (0.0-10.0); %Neutrophils 66.1 % (42.0-75.0); Hematocrit 17.7 % (42.0-52.0); Hemoglobin 5.6 g/dL (14.0-18.0); Mean Corpuscular Hemoglobin 30.6 pg (27.0-31.0); Mean Corpuscular Volume 96.7 fL (78.0-98.0); Platelet Count 218 10x3/uL (130-400); Red Blood Cell (RBC) Count 1.83 mill/uL (4.70-6.10); White Blood Cell (WBC) Count 7.87 10x3/uL (4.8-10.8)
[2025-04-21 20:44] VITALS: BMI 21.2
[2025-04-21] MEDS: Pantoprazole 40 MG VIAL IVP SCH ×2 (21:05)
[2025-04-22 03:47] LABS: #Basophils Less than 0.03 10x3/uL (0.0-0.2); #Eosinophils 0.04 10x3/uL (0.0-0.7); #Monocytes 0.58 10x3/uL (0.11-0.59); #Neutrophils 5.66 10x3/uL (1.40-6.50); %Basophils 0.2 % (0.0-1.0); %Eosinophils 0.5 % (0.0-10.0); %Lymphocytes 22.1 % (21.0-51.0); %Monocytes 7.1 % (0.0-10.0); %Neutrophils 69.4 % (42.0-75.0); Hematocrit 26.1 % (42.0-52.0); Hemoglobin 8.3 g/dL (14.0-18.0); Mean Corpuscular Hemoglobin 30.2 pg (27.0-31.0); Mean Corpuscular Volume 94.9 fL (78.0-98.0); Platelet Count 194 10x3/uL (130-400); Red Blood Cell (RBC) Count 2.75 mill/uL (4.70-6.10); White Blood Cell (WBC) Count 8.16 10x3/uL (4.8-10.8)
[2025-04-22 04:08] LABS: Anion Gap 10 mmol/L (10-20); BUN (Urea Nitrogen) 25 mg/dL (8.4-25.7); Calc. Creatinine Clearance 61 mL/min (70-130); Calcium 7.4 mg/dL (7.8-10.44); Carbon Dioxide 20 mmol/L (23-31); Chloride 106 mmol/L (98-107); Glucose 66 mg/dL (83-110); Potassium 3.5 mmol/L (3.5-5.1); Sodium 132 mmol/L (136-145)
[2025-04-22] MEDS: Pantoprazole 40 MG VIAL IVP SCH (09:10)
[2025-04-22] MEDS: PNEUMOC 20-VAL CONJ-DIP CRM/PF 0.5 ML SYRINGE IM ONE (09:10)
[2025-04-22] MEDS ORDERED: Dextrose 50% Abboject 50 ML SYRINGE SLOW IVP PRN (09:53)
[2025-04-22] MEDS ORDERED: Glucagon 1 MG/ML KIT IM PRN (09:53)
[2025-04-22 10:10] LABS: Hematocrit 22.7 % (42.0-52.0); Hemoglobin 7.5 g/dL (14.0-18.0)
[2025-04-22 14:14] VITALS: BP 118/71; TEMP 97.8
[2025-04-22] MEDS ORDERED: Mometasone 100 MCG HFA INHALER (RT USE) INH SCH (18:30)
== END 2025-04-22 17:03 | disposition hospice, home (50) ==
LOC: ERS 08:24 → PCU 15:53
PROVIDERS: ADMIT Family Medicine; ATTEND Internal Medicine
DX: D64.9 Anemia, unspecified (principal); J44.9 Chronic obstructive pulmonary disease, unspecified; G30.9 Alzheimer's disease, unspecified; F02.80 Dementia in other diseases classified elsewhere, unspecified severity, without behavioral disturbance, psychotic disturbance, mood disturbance, and anxiety; Z87.891 Personal history of nicotine dependence; Z51.5 Encounter for palliative care; Z79.899 Other long term (current) drug therapy
CPT/HCPCS: 36430; 70450; 72125; 74177; 80048; 80053; 81001; 85014; 85018; 85025 ×3; 86850; 86900; 86901; 86920; 87040; 94640; 96361; 96365; 96375; 96376; 99285; G0378 ×3; J0696; J2470 ×2; P9016 ×2; 36415

== ENCOUNTER 2025-04-27 16:33 | Emergency (ER) | payer MEDICARE ==
[2025-04-27 18:53] LABS: #Basophils Less than 0.03 10x3/uL (0.0-0.2); #Eosinophils Less than 0.03 10x3/uL (0.0-0.7); #Monocytes 0.25 10x3/uL (0.11-0.59); #Neutrophils 3.39 10x3/uL (1.40-6.50); %Basophils 0.2 % (0.0-1.0); %Eosinophils 0.2 % (0.0-10.0); %Lymphocytes 27.1 % (21.0-51.0); %Monocytes 4.9 % (0.0-10.0); %Neutrophils 66.2 % (42.0-75.0); Hematocrit 9.4 % (42.0-52.0); Hemoglobin 3.0 g/dL (14.0-18.0); Mean Corpuscular Hemoglobin 30.3 pg (27.0-31.0); Mean Corpuscular Volume 94.9 fL (78.0-98.0); Platelet Count 84 10x3/uL (130-400); Red Blood Cell (RBC) Count 0.99 mill/uL (4.70-6.10); White Blood Cell (WBC) Count 5.12 10x3/uL (4.8-10.8)
[2025-04-27 19:04] LABS: INR-International Normal Ratio 1.3; PTT 35.0 sec (22.9-36.1); Prothrombin Time 16.4 sec (12.0-14.7)
[2025-04-27 19:06] LABS: Acetaminophen Less than 10 mcg/mL (Less than 10); Salicylate Less than 8.0 mg/dL (Less than 8.0)
[2025-04-27 19:19] LABS: ALT (SGPT) 7 U/L (Less than 45); AST (SGOT) 13 U/L (11-34); Albumin 1.9 g/dL (3.1-4.5); Alkaline Phosphatase 39 U/L (40-110); Anion Gap 15 mmol/L (10-20); BUN (Urea Nitrogen) 44 mg/dL (8.4-25.7); Bilirubin, Total 0.1 mg/dL (0.3-1.2); Calc. Creatinine Clearance 0 mL/min (70-130); Calcium 6.7 mg/dL (7.8-10.44); Carbon Dioxide 16 mmol/L (23-31); Chloride 104 mmol/L (98-107); Globulin 1.3 g/dL (2.4-3.5); Glucose 84 mg/dL (83-110); Potassium 4.3 mmol/L (3.5-5.1); Sodium 131 mmol/L (136-145)
[2025-04-27] MEDS ORDERED: CALCIUM GLUC 1 GM/NS 50 ML IV Bag ONE (20:05)
[2025-04-27] MEDS ORDERED: Pantoprazole 40 MG VIAL ONE (20:06)
[2025-04-27] MEDS ORDERED: Ondansetron PF 4 MG/2 ML Vial ONE (21:12)
== END 2025-04-28 04:36 | disposition short-term general hospital (02) ==
LOC: EDBD 16:33 → ERS 16:33 → MERGE 16:33 → ERS 04-28 04:36
DX: D50.0 Iron deficiency anemia secondary to blood loss (chronic) (principal); R57.8 Other shock; J44.9 Chronic obstructive pulmonary disease, unspecified; F17.210 Nicotine dependence, cigarettes, uncomplicated; Z55.6 Problems related to health literacy
CPT/HCPCS: 36430; 70450; 71045; 72125; 72170; 73502; 80053; 80307; 83605; 84484; 85025; 85610; 85730; 86850; 86900; 86901; 86920; 87040; 87077; 87149 ×2; 93005; 96365; 96375; 99285; J0613; J2405; J2470; P9016

== ENCOUNTER 2025-04-27 16:43 | Inpatient (IN) | payer MEDICARE ==
[2025-04-27] MEDS ORDERED: Ondansetron PF 4 MG/2 ML Vial IVP PRN (21:30)
[2025-04-27] MEDS ORDERED: Acetaminophen 325 MG TAB PO PRN (23:46)
[2025-04-28 01:13] LABS: Actual Bicarbonate (HCO3v) 19.1 mEq/L (22-28); Analyzer IN Cardio ER; Base Excess -4.2 mEq/L (-2.0 to +3.0); Calcium, Ionized (venous) 0.96 mmol/L (1.16-1.32); Chloride (VBG) 105 mmol/L (98-106); Potassium (VBG) 4.53 mmol/L (3.70-5.30); Sodium 127 mmol/L (133-146)
[2025-04-28 01:50] LABS: Hematocrit 21.7 % (42.0-52.0); Hemoglobin 7.2 g/dL (14.0-18.0)
[2025-04-28 02:42] VITALS: BMI 25.0
[2025-04-28 03:00] LABS: INR-International Normal Ratio 1.2; PTT 27.6 sec (22.9-36.1); Prothrombin Time 15.7 sec (12.0-14.7)
[2025-04-28 03:11] LABS: #Basophils 0.03 10x3/uL (0.0-0.2); #Eosinophils Less than 0.03 10x3/uL (0.0-0.7); #Monocytes 0.41 10x3/uL (0.11-0.59); #Neutrophils 6.84 10x3/uL (1.40-6.50); %Basophils 0.3 % (0.0-1.0); %Eosinophils 0.1 % (0.0-10.0); %Lymphocytes 14.5 % (21.0-51.0); %Monocytes 4.8 % (0.0-10.0); %Neutrophils 79.3 % (42.0-75.0); Hematocrit 21.8 % (42.0-52.0); Hemoglobin 7.1 g/dL (14.0-18.0); Mean Corpuscular Hemoglobin 29.1 pg (27.0-31.0); Mean Corpuscular Volume 89.3 fL (78.0-98.0); Platelet Count 66 10x3/uL (130-400); Red Blood Cell (RBC) Count 2.44 mill/uL (4.70-6.10); White Blood Cell (WBC) Count 8.63 10x3/uL (4.8-10.8)
[2025-04-28 03:41] LABS: ALT (SGPT) 10 U/L (Less than 45); AST (SGOT) 25 U/L (11-34); Albumin 1.9 g/dL (3.1-4.5); Alkaline Phosphatase 44 U/L (40-110); Anion Gap 10 mmol/L (10-20); BUN (Urea Nitrogen) 50 mg/dL (8.4-25.7); Bilirubin, Total 0.5 mg/dL (0.3-1.2); Calc. Creatinine Clearance 58 mL/min (70-130); Calcium 6.8 mg/dL (7.8-10.44); Carbon Dioxide 18 mmol/L (23-31); Chloride 106 mmol/L (98-107); Globulin 1.5 g/dL (2.4-3.5); Glucose 77 mg/dL (83-110); Potassium 4.3 mmol/L (3.5-5.1); Sodium 130 mmol/L (136-145)
[2025-04-28 03:49] LABS: Burr Cells SLIGHT = 2-5 cells HPF (0-1); Platelet Adequacy Comment Platelets Decreased; Polychromasia SLIGHT = 2-3 cells HPF (0-2)
[2025-04-28 07:35] LABS: Hematocrit 24.8 % (42.0-52.0); Hemoglobin 8.2 g/dL (14.0-18.0)
[2025-04-28] MEDS: Pantoprazole 40 MG VIAL IVP SCH (09:43)
[2025-04-28] MEDS ORDERED: Ondansetron PF 4 MG/2 ML Vial IVP PRN (13:00)
[2025-04-28 15:14] LABS: Bacteria/HPF None Seen HPF (None Seen); CAUTI Indications for Culture Dysuria,urgency,freq; Glucose, Urine (Dipstick) Normal (Negative); Leukocyte Negative Leu/uL (Negative); Protein, Urine (Dipstick) Negative (Neg-Trace); RBC/HPF 0-3 HPF (0-3); Specific Gravity, Urine 1.021 (1.002-1.036); WBC/HPF 0-3 HPF (0-3)
[2025-04-28 15:17] LABS: Urine Culture Reflex No No
[2025-04-28 16:26] LABS: Hematocrit 17.1 % (42.0-52.0); Hemoglobin 5.3 g/dL (14.0-18.0)
[2025-04-28] MEDS: GoLYTELY 4,000 ml Bottle PO SCH (18:03)
[2025-04-28] MEDS: Mometasone 100 MCG HFA INHALER (RT USE) INH SCH (18:13)
[2025-04-29 02:02] LABS: #Basophils 0.03 10x3/uL (0.0-0.2); #Eosinophils Less than 0.03 10x3/uL (0.0-0.7); #Monocytes 0.66 10x3/uL (0.11-0.59); #Neutrophils 9.45 10x3/uL (1.40-6.50); %Basophils 0.3 % (0.0-1.0); %Eosinophils 0.1 % (0.0-10.0); %Lymphocytes 14.1 % (21.0-51.0); %Monocytes 5.5 % (0.0-10.0); %Neutrophils 79.1 % (42.0-75.0); Hematocrit 27.3 % (42.0-52.0); Hemoglobin 9.0 g/dL (14.0-18.0); Mean Corpuscular Hemoglobin 29.4 pg (27.0-31.0); Mean Corpuscular Volume 89.2 fL (78.0-98.0); Platelet Count 83 10x3/uL (130-400); Red Blood Cell (RBC) Count 3.06 mill/uL (4.70-6.10); White Blood Cell (WBC) Count 11.95 10x3/uL (4.8-10.8)
[2025-04-29 02:39] LABS: ALT (SGPT) 9 U/L (Less than 45); AST (SGOT) 23 U/L (11-34); Albumin 1.9 g/dL (3.1-4.5); Alkaline Phosphatase 41 U/L (40-110); Anion Gap 11 mmol/L (10-20); BUN (Urea Nitrogen) 48 mg/dL (8.4-25.7); Bilirubin, Total 0.4 mg/dL (0.3-1.2); Calc. Creatinine Clearance 60 mL/min (70-130); Calcium 6.8 mg/dL (7.8-10.44); Carbon Dioxide 16 mmol/L (23-31); Chloride 107 mmol/L (98-107); Globulin 1.5 g/dL (2.4-3.5); Glucose 88 mg/dL (83-110); Potassium 3.6 mmol/L (3.5-5.1); Sodium 130 mmol/L (136-145)
[2025-04-29 04:24] LABS: #Basophils 0.05 10x3/uL (0.0-0.2); #Eosinophils Less than 0.03 10x3/uL (0.0-0.7); #Monocytes 0.69 10x3/uL (0.11-0.59); #Neutrophils 9.09 10x3/uL (1.40-6.50); %Basophils 0.4 % (0.0-1.0); %Eosinophils 0.2 % (0.0-10.0); %Lymphocytes 14.1 % (21.0-51.0); %Monocytes 5.9 % (0.0-10.0); %Neutrophils 78.3 % (42.0-75.0); Hematocrit 26.9 % (42.0-52.0); Hemoglobin 8.7 g/dL (14.0-18.0); Mean Corpuscular Hemoglobin 29.2 pg (27.0-31.0); Mean Corpuscular Volume 90.3 fL (78.0-98.0); Platelet Count 89 10x3/uL (130-400); Red Blood Cell (RBC) Count 2.98 mill/uL (4.70-6.10); White Blood Cell (WBC) Count 11.62 10x3/uL (4.8-10.8)
[2025-04-29 04:40] LABS: ALT (SGPT) 9 U/L (Less than 45); AST (SGOT) 20 U/L (11-34); Albumin 1.9 g/dL (3.1-4.5); Alkaline Phosphatase 41 U/L (40-110); Anion Gap 11 mmol/L (10-20); BUN (Urea Nitrogen) 44 mg/dL (8.4-25.7); Bilirubin, Total 0.4 mg/dL (0.3-1.2); Calc. Creatinine Clearance 56 mL/min (70-130); Calcium 6.7 mg/dL (7.8-10.44); Carbon Dioxide 13 mmol/L (23-31); Chloride 110 mmol/L (98-107); Globulin 1.4 g/dL (2.4-3.5); Glucose 85 mg/dL (83-110); Potassium 3.7 mmol/L (3.5-5.1); Sodium 130 mmol/L (136-145)
[2025-04-29] MEDS: Albumin 25% 25 GM (100 mL) BOT IVPB SCH (05:15)
[2025-04-29] MEDS: Mupirocin 1 GM TUBE NASAL DECOLONIZATION NASAL SCH (08:59)
[2025-04-29] MEDS: FLU (Fluad Triv) 25-26 (65UP)PF 45 MCG/0.5 ML Syringe IM ONE (09:00)
[2025-04-29] MEDS ORDERED: PROPOFOL 200 MG/20 ML VIAL ONE (10:19)
[2025-04-29] MEDS ORDERED: PHENYLEPHRINE-NS 100 MCG/ML 10 ML SYRINGE ONE (10:23)
[2025-04-29] MEDS ORDERED: EPINEPHrine 1 MG/10 ML Abboject SYRINGE ONE (10:28)
[2025-04-29 18:48] LABS: Hematocrit 19.8 % (42.0-52.0); Hemoglobin 6.4 g/dL (14.0-18.0)
[2025-04-30 07:19] LABS: #Basophils Less than 0.03 10x3/uL (0.0-0.2); #Eosinophils 0.03 10x3/uL (0.0-0.7); #Monocytes 0.34 10x3/uL (0.11-0.59); #Neutrophils 5.12 10x3/uL (1.40-6.50); %Basophils 0.1 % (0.0-1.0); %Eosinophils 0.4 % (0.0-10.0); %Lymphocytes 18.8 % (21.0-51.0); %Monocytes 5.0 % (0.0-10.0); %Neutrophils 75.3 % (42.0-75.0); Hematocrit 22.8 % (42.0-52.0); Hemoglobin 7.5 g/dL (14.0-18.0); Mean Corpuscular Hemoglobin 28.6 pg (27.0-31.0); Mean Corpuscular Volume 87.0 fL (78.0-98.0); Platelet Count 89 10x3/uL (130-400); Red Blood Cell (RBC) Count 2.62 mill/uL (4.70-6.10); White Blood Cell (WBC) Count 6.81 10x3/uL (4.8-10.8)
[2025-04-30 07:23] LABS: ALT (SGPT) 7 U/L (Less than 45); AST (SGOT) 14 U/L (11-34); Albumin 2.7 g/dL (3.1-4.5); Alkaline Phosphatase 33 U/L (40-110); Anion Gap 10 mmol/L (10-20); BUN (Urea Nitrogen) 23 mg/dL (8.4-25.7); Bilirubin, Total 0.6 mg/dL (0.3-1.2); Calc. Creatinine Clearance 71 mL/min (70-130); Calcium 7.0 mg/dL (7.8-10.44); Carbon Dioxide 17 mmol/L (23-31); Chloride 108 mmol/L (98-107); Globulin 0.9 g/dL (2.4-3.5); Glucose 85 mg/dL (83-110); Potassium 3.1 mmol/L (3.5-5.1); Sodium 132 mmol/L (136-145)
[2025-04-30 13:13] LABS: Hematocrit 23.5 % (42.0-52.0); Hemoglobin 7.7 g/dL (14.0-18.0)
[2025-05-01 04:33] LABS: #Basophils Less than 0.03 10x3/uL (0.0-0.2); #Eosinophils 0.12 10x3/uL (0.0-0.7); #Monocytes 0.33 10x3/uL (0.11-0.59); #Neutrophils 3.66 10x3/uL (1.40-6.50); %Basophils 0.2 % (0.0-1.0); %Eosinophils 2.3 % (0.0-10.0); %Lymphocytes 21.9 % (21.0-51.0); %Monocytes 6.2 % (0.0-10.0); %Neutrophils 69.0 % (42.0-75.0); Hematocrit 24.4 % (42.0-52.0); Hemoglobin 8.2 g/dL (14.0-18.0); Mean Corpuscular Hemoglobin 29.6 pg (27.0-31.0); Mean Corpuscular Volume 88.1 fL (78.0-98.0); Platelet Count 111 10x3/uL (130-400); Red Blood Cell (RBC) Count 2.77 mill/uL (4.70-6.10); White Blood Cell (WBC) Count 5.30 10x3/uL (4.8-10.8)
[2025-05-01 04:49] LABS: Anion Gap 9 mmol/L (10-20); BUN (Urea Nitrogen) 13 mg/dL (8.4-25.7); Calc. Creatinine Clearance 84 mL/min (70-130); Carbon Dioxide 16 mmol/L (23-31); Chloride 109 mmol/L (98-107); Potassium 3.6 mmol/L (3.5-5.1); Sodium 130 mmol/L (136-145)
[2025-05-01 04:50] LABS: Calcium 7.1 mg/dL (7.8-10.44); Glucose 83 mg/dL (83-110)
[2025-05-01] MEDS: Pantoprazole 40 MG VIAL IVP SCH (10:26)
[2025-05-01 12:05] VITALS: BP 143/77; TEMP 97.8
== END 2025-05-01 17:04 | disposition home or self-care (01) | DRG 380 ==
LOC: ERS 16:43 → ERHOLD 21:17 → PCU 04-28 04:39 → CCU 04-28 21:45 → PCU 04-29 12:51
PROVIDERS: ADMIT Internal Medicine; ATTEND Internal Medicine
PROC: 30233N1 Transfusion of Nonautologous Red Blood Cells into Peripheral Vein, Percutaneous Approach (ICD-10-PCS; 2025-04-28)
PROC: 3E02340 Introduction of Influenza Vaccine into Muscle, Percutaneous Approach (ICD-10-PCS; 2025-04-28)
PROC: 0DB38ZX Excision of Lower Esophagus, Via Natural or Artificial Opening Endoscopic, Diagnostic (ICD-10-PCS; principal; 2025-04-29)
PROC: 0W3P8ZZ Control Bleeding in Gastrointestinal Tract, Via Natural or Artificial Opening Endoscopic (ICD-10-PCS; 2025-04-29)
PROC: 30233J1 Transfusion of Nonautologous Serum Albumin into Peripheral Vein, Percutaneous Approach (ICD-10-PCS; 2025-04-29)
DX: K22.11 Ulcer of esophagus with bleeding (principal); R57.8 Other shock; D62 Acute posthemorrhagic anemia; J96.11 Chronic respiratory failure with hypoxia; E87.20 Acidosis, unspecified; N17.9 Acute kidney failure, unspecified; K92.2 Gastrointestinal hemorrhage, unspecified; J44.9 Chronic obstructive pulmonary disease, unspecified; D69.6 Thrombocytopenia, unspecified; E83.51 Hypocalcemia; F03.90 Unspecified dementia, unspecified severity, without behavioral disturbance, psychotic disturbance, mood disturbance, and anxiety; K44.9 Diaphragmatic hernia without obstruction or gangrene; Z99.81 Dependence on supplemental oxygen; F17.210 Nicotine dependence, cigarettes, uncomplicated; Z55.6 Problems related to health literacy
CPT/HCPCS: 36415; 36430; 70450; 71045; 72125; 72170; 80048; 80053; 80307; 81001; 82805; 83605; 84145; 84484; 85025; 85610; 85730; 86850; 86900; 86901; 87040; 87077; 87149; 88305; 88342; 93005; 94640; 96365; 96375; J0165; J0613; J2405; J2470; J2704; J7030; J7042; P9016; P9047